=== PATIENT | male | born 1960 | race Asian ===

== ENCOUNTER 2018-06-19 09:17 | Day surgery (SDC) | payer OTHER ==
[~2018-06-19] VITALS: Ht 172.7 cm; Wt 83.0 kg
[2018-06-19] MEDS ORDERED: ATOR10TA PO (10:01)
[2018-06-19] MEDS ORDERED: ASPI-1677 PO (10:01)
[2018-06-19] MEDS ORDERED: FISH10005 PO (10:01)
[2018-06-19] MEDS ORDERED: CARV3.12 PO (10:01)
[2018-06-19] MEDS ORDERED: SPIR25TA PO (10:01)
[2018-06-19] MEDS ORDERED: LISI2.5T12 PO (10:01)
[2018-06-19] MEDS ORDERED: LIDOCAINE 2% 100 MG/5 ML UJET TP ONE (11:57)
[2018-06-19] MEDS ORDERED: KETOROLAC 30 MG/ML VIAL ONE (11:57)
== END 2018-06-19 13:15 | disposition home or self-care (01) ==
LOC: MDS 09:17 → MMU 09:18 → MDS 13:15
PROVIDERS: ATTEND Internal Medicine Gastroenterology
DX: K63.5 Polyp of colon (principal); K64.8 Other hemorrhoids; I11.0 Hypertensive heart disease with heart failure; I50.9 Heart failure, unspecified; I25.2 Old myocardial infarction; Z95.1 Presence of aortocoronary bypass graft; Z98.890 Other specified postprocedural states; Z79.82 Long term (current) use of aspirin; Z79.899 Other long term (current) drug therapy; Z79.01 Long term (current) use of anticoagulants
CPT/HCPCS: 45385; J1885